=== PATIENT | female | born 1975 | race Caucasian/White ===

== ENCOUNTER 2016-11-10 17:50 | Emergency (ER) | payer OTHER ==
[~2016-11-10] VITALS: Ht 162.6 cm; Wt 88.2 kg
[~2016-11-10 17:50] MED LIST: FIORICET 50-301 EACH PO; MOTRIN800 MG PO; VALIUM5 MG PO
[2016-11-10] MEDS ORDERED: PERCOCET 5/31 TABLET PO (22:01)
[2016-11-10 22:40] VITALS: BP 119/81
[2016-11-12] MEDS ORDERED: MOTRIN800 MG PO (12:41)
[2016-11-12] MEDS ORDERED: OXYCODONE-ACET1 EACH PO (12:42)
[2016-11-12] MEDS ORDERED: FIORICET 50-301 EACH PO (12:43)
[2016-11-12] MEDS ORDERED: TRILEPTAL300 MG PO (12:43)
[2016-11-12] MEDS ORDERED: SYNTHROID150 MCG PO (12:45)
[2016-11-12] MEDS ORDERED: FLUVOXAMINE MA150 MG PO (12:45)
[2016-11-12] MEDS ORDERED: MULTI-DAY VITA1 EACH PO (12:46)
[2016-11-12] MEDS ORDERED: TOPAMAX100 MG PO (12:47)
== END 2016-11-10 22:40 | disposition home or self-care (01) ==
LOC: EME 17:50
PROC: 0QSHXZZ Reposition Left Tibia, External Approach (ICD-10-PCS; principal; 2016-11-10)
DX: S82.852A Displaced trimalleolar fracture of left lower leg, initial encounter for closed fracture (principal); S30.0XXA Contusion of lower back and pelvis, initial encounter; W10.9XXA Fall (on) (from) unspecified stairs and steps, initial encounter; Y93.01 Activity, walking, marching and hiking; F17.200 Nicotine dependence, unspecified, uncomplicated
CPT/HCPCS: 72220; 73560; 73590; 73600; 73610; 99281; 99285; J3010; J7030

== ENCOUNTER 2016-11-13 08:57 | Day surgery (SDC) | payer OTHER ==
[~2016-11-13] VITALS: Ht 162.6 cm; Wt 88.0 kg
[~2016-11-13 08:57] MED LIST changes: +FLUVOXAMINE MA150 MG PO; +MULTI-DAY VITA1 EACH PO; +OXYCODONE-ACET1 EACH PO; +PERCOCET 5/31 TABLET PO; +SYNTHROID150 MCG PO; +TOPAMAX100 MG PO; +TRILEPTAL300 MG PO
[2016-11-13 09:41] VITALS: BP 124/68
[2016-11-13 09:49] LABS: HEMATOCRIT 36.1 % (36.0-46.0); MCH 30.9 PG (29.0-34.0); MCHC 33.5 G/DL (30.0-36.0); MCV 92.1 FL (83-99); MEAN PLAT.VOLUME 9.6 uM^3 (9.5-12.4); PLATELET COUNT 246 K/uL (156-360); RBC DIS.WIDTH-CV 13.3 % (11.8-14.6); RBC DIS.WIDTH-SD 44.9 % (39-53); RED BLOOD COUNT 3.92 M/uL (3.80-5.20); WHITE BLOOD COUNT 10.2 K/uL (4.1-10.2)
[2016-11-13 10:00] LABS: AMPHETAMINES QUANT VALUE 0 NG/ML; BARBITUATES QUANT VALUE 0 NG/ML; BENZODIAZEPINES QUANT VALUE 0 NG/ML; BENZODIAZEPINES, URINE SCREEN Negative (200 ng/mL); MARIJUANA QUANT VALUE 0 NG/ML; OPIATES QUANTITATIVE VALUE 0 NG/ML; PHENCYCLIDINE QUANT VALUE 0 NG/ML
[2016-11-13 14:50] VITALS: BP 110/59
[2016-11-13 15:52] VITALS: BP 127/63
[2016-11-14 08:00] LABS: INTERNAL CONTROL VALID? YES
== END 2016-11-13 15:54 | disposition home or self-care (01) ==
LOC: SDC 08:57
PROVIDERS: Orthopaedic Surgery
PROC: 0QSK04Z Reposition Left Fibula with Internal Fixation Device, Open Approach (ICD-10-PCS; principal; 2016-11-13)
DX: S82.852A Displaced trimalleolar fracture of left lower leg, initial encounter for closed fracture (principal); S93.02XA Subluxation of left ankle joint, initial encounter; W10.9XXA Fall (on) (from) unspecified stairs and steps, initial encounter; Y93.01 Activity, walking, marching and hiking; Y92.009 Unspecified place in unspecified non-institutional (private) residence as the place of occurrence of the external cause; Z87.891 Personal history of nicotine dependence; E03.9 Hypothyroidism, unspecified
CPT/HCPCS: 73600; 76000; 80306 90; 84703; 85027; C1713; J0131; J0690; J1100; J1170; J1885; J2250; J2405; J2795; J3010; J3475; S0020

== ENCOUNTER 2016-11-21 04:34 | Emergency (ER) | payer OTHER ==
[~2016-11-21] VITALS: Ht 162.6 cm; Wt 88.2 kg
[2016-11-21 06:35] VITALS: BP 129/71
== END 2016-11-21 06:37 | disposition home or self-care (01) ==
LOC: EME 04:34
PROC: 2W3RX1Z Immobilization of Left Lower Leg using Splint (ICD-10-PCS; principal; 2016-11-21)
DX: S82.892A Other fracture of left lower leg, initial encounter for closed fracture (principal); Z87.891 Personal history of nicotine dependence
CPT/HCPCS: 99281; 99284